=== PATIENT | male | born 1960 ===

== ENCOUNTER → 2019-10-15 | Outpatient (CLI) | payer BC ==
--- NOTE | 2019-10-15 09:12 | RADIOLOGY REPORT (SQ) ---
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 Reconstructed coronal and sagittal MPR images reviewed. All images stored on PACS. All CT scanners at this facility use dose modulation, iterative reconstruction, and/or weight based d osing when appropriate to reduce radiation dose to as low as reasonably achievable (ALARA). [facility]: Dose Right [facility]: CareDose [facility]: Dose Right [facility]: Teradose 4D [facility]: Cylex CONTRAST TYPE AND DOSE: contrast/concentration: Isovue 350.00 mmol/ml; Total Contrast Delivered: 75. 0 ml; Total Saline Delivered: 55.0 ml RENAL FUNCTION: Creatinine 0.9 RADIATION DOSE: 21 mGy LIMITATIONS: None. FINDINGS: SKULL BASE: Inferior brain parenchyma in the field of view unremarkable MAJOR SALIVARY GLANDS: No solid or cystic masses. No inflammatory changes. LYMPHADENOPATHY: No adenopathy. MUCOSAL MASSES OR ASYMMETRY: No mucosal masses or asymmetry. LARYNX/CORDS: No abnormal findings. VASCULAR STRUCTURES: The major vessels are patent. LUNG APICES: Clear. BONES: Intact. THYROID: In the posteroinferior aspect of the right lobe thyroid, a 1.3 x 1 cm nodule is present. De dicated thyroid ultrasound is recommended for follow-up of this finding. PARANASAL SINUSES: Clear. OTHER: A well-circumscribed nodule is present between the hyoid bone and top of the thyroid cartilage . This is isodense to muscle, well-circumscribed, and measures 1.6 cm craniocaudad by 1.1 cm AP x 9 mm transverse, best shown on axial image 59/119, sagittal image 56/106 and coronal image 40. This co uld represent a thyroglossal duct cyst or remnant, or could be asymmetrically thickened thyrohyoid mu scle. Ultrasound of this area is recommended for further evaluation. In the submental region, a 1.2 x 1 cm lymph node in 1 x 0.7 cm lymph node are present on axial image 58/119. IMPRESSION: 1.3 x 1 cm nodule in the right lobe thyroid. Dedicated thyroid ultrasound is recommende d for followup. Question isodense thyroglossal duct cyst/remnant versus asymmetric thyrohyoid muscle. Ultrasound of this finding at the time of thyroid ultrasound is recommended. TECHNICAL DOCUMENTATION: JOB ID: [id number] Quality ID # [id number]: Final reports with documentation of one or more dose reduction techniques (e.g., Au tomated exposure control, adjustment of the mA and/or kV according to patient size, use of iterative reconstruction technique) 2010 [employer]- All Rights Reserved Reading location - IP/workstation name: [email or web address]
== END ==
LOC: RAD 08:16
PROVIDERS: ATTEND Otolaryngology
DX: Q89.2 Congenital malformations of other endocrine glands (principal); E04.1 Nontoxic single thyroid nodule
CPT/HCPCS: 70491; 82565

== ENCOUNTER → 2020-05-06 | Outpatient (CLI) | payer BC | LOC: OD 16:50 | PROVIDERS: ATTEND Otolaryngology | DX: E04.2 Nontoxic multinodular goiter (principal) | CPT/HCPCS: 36415; 82308 ==